=== PATIENT | female | born 2000 | race Two or more races ===

== ENCOUNTER 2019-01-16 23:14 | Emergency (ER) | payer MEDICAID ==
[~2019-01-16] VITALS: Ht 162.6 cm; Wt 68.0 kg
[2019-01-16 23:20] VITALS: BP 122/72
[2019-01-16] MEDS ORDERED: FLUORESCEIN SODIUM OPHTH 1 EA STRIP ONE (23:55)
[2019-01-16] MEDS ORDERED: TETRACAINE HCL/PF 0.5% UD 2 ML BOTTLE ONE (23:55)
--- NOTE | 2019-01-17 00:08 | NUR ---
TECH AT BEDSIDE FOR EKG
== END 2019-01-17 01:40 | disposition home or self-care (01) ==
LOC: ER 23:15
DX: R07.89 Other chest pain (principal)
CPT/HCPCS: 71045; 84703; 93005; 99284; A4606